=== PATIENT | female | born 1955 | race Caucasian/White ===

== ENCOUNTER → 2019-09-12 09:10 | Outpatient (CLI) | payer MEDICARE, SELFPAY ==
[2019-09-12 09:37] LABS: Add Manual Diff / Slide Review NO; Basophils Absolute Auto 0 /uL (0-100); Basophils Percent Auto 0.7 % (0-2); Eosinophils Absolute Auto 300 /uL (0-450); Eosinophils Percent Auto 4.5 % (2-4); Hematocrit 39.9 % (36-46); Hemoglobin 13.8 g/dL (12.0-16.0); Lymphocytes Absolute Auto 1600 /uL (1100-4500); Lymphocytes Percent Auto 27.9 % (25-40); Mean Corpuscular HGB Conc 34.6 % (30-36); Mean Corpuscular Hemoglobin 31.2 PG (26-34); Mean Corpuscular Volume 89.9 fL (80-100); Monocytes Absolute Auto 400 /uL (0-900); Monocytes Percent Auto 6.2 % (3-14); Neutrophils Absolute Auto 3500 /uL (1500-7000); Neutrophils Percent Auto 60.7 % (50-75); Platelet Count 297 X10^3/uL (150-400); Red Blood Cell Count 4.44 X10^6/uL (4.0-5.2); Red Cell Distribution Width 13.7 % (11.6-14.8); White Blood Cell Count 5.8 X10^3/uL (4.5-11.0)
[2019-09-12 09:49] LABS: Alanine Aminotransferase 21 IU/L (<35); Albumin 4.5 g/dL (3.5-5.0); Albumin Globulin Ratio 1.3 (1.0-2.8); Alkaline Phosphatase 74 U/L (38-126); Aspartate Aminotransferase 22 IU/L (14-36); Bilirubin Total 0.9 mg/dL (0.2-1.3); Blood Urea Nitrogen 10 mg/dL (7-17); Calcium 9.8 mg/dL (8.4-10.2); Carbon Dioxide 31 mmol/L (22-32); Chloride 100 mmol/L (98-107); Cholesterol 283 mg/dL (140-199); Estimated Glomerular Filt Rate > 60.0 mL/min (>60); Globulin 3.4 g/dL (1.7-4.1); Glucose 114 mg/dL (80-110); HDL Cholesterol 39 mg/dL (40-60); HEMOLYSIS < 15 (0-50); LDL Cholesterol Calculated 205 mg/dL (<100); Potassium 4.6 mmol/L (3.4-5.1); Sodium 139 mmol/L (137-145); Total Protein 7.9 g/dL (6.3-8.2); Triglycerides 197 mg/dL (35-150)
[2019-09-12 10:20] LABS: Free T3, Triiodothyronine Free 3.67 pg/mL (2.77-5.27); Free T4, Direct Thyroxine 1.03 ng/dL (0.78-2.19); Vitamin D 25 Hydroxy (D3) 24.8 ng/mL (30.0-100.0)
[2019-09-12 10:33] LABS: Thyroid Stimulating Hormone 2.33 uIU/mL (0.47-4.68)
[2019-09-12 10:56] LABS: Hep C Virus Ab w/Reflex Quant NEGATIVE s/c (NEGATIVE)
== END ==
PROVIDERS: PCP Nurse Practitioner; Visit Provider Nurse Practitioner
DX: Z00.00 Encounter for general adult medical examination without abnormal findings (principal); Z13.6 Encounter for screening for cardiovascular disorders; R63.4 Abnormal weight loss; Q78.2 Osteopetrosis; Z11.59 Encounter for screening for other viral diseases; Z91.89 Other specified personal risk factors, not elsewhere classified; Z13.1 Encounter for screening for diabetes mellitus
CPT/HCPCS: 36415; 80053; 80061; 82306; 84439; 84443; 84481; 85025; 86803

== ENCOUNTER → 2019-09-25 08:00 | Outpatient (CLI) | payer MEDICARE, SELFPAY ==
--- NOTE | 2019-09-25 08:03 | DI.US.S_ITS ---
PROCEDURE: US ABD AORTA ANEURYSM SCREEN INDICATIONS: SCREEN TECHNIQUE: Real time scanning was performed of the aorta and iliac arteries, with image documentation. COMPARISON: None. FINDINGS: Aorta: Proximal aortic diameter measures 2.2 cm. Mid-aorta measures 1.3 cm. Distal aortic diameter is 1.4 cm. Iliac arteries: Right common iliac artery measures 0.8 cm. Left common iliac artery measures 0.9 cm. IMPRESSION: No aneurysm found. Dictated by: Chivo Garcia M.D. on 09/25/2019 at 8:38 Approved by: Chivo Garcia M.D. on 09/25/2019 at 8:39
--- NOTE | 2019-09-25 08:03 | DI.MG.S_ITS ---
BILATERAL DIGITAL SCREENING MAMMOGRAM 3D/2D WITH CAD: 09/25/2019 CLINICAL: Routine screening. Family history of breast cancer. Comparison is made to exams dated: 12/26/2013 mammogram, 12/08/2013 mammogram, and 11/29/2013 mammogram - [facility]. The tissue of both breasts is heterogeneously dense. This may lower the sensitivity of mammography. Current study was also evaluated with a Computer Aided Detection (CAD) system. There is a biopsy clip in the right breast. No significant masses, calcifications, or other findings are seen in either breast. There has been no significant interval change. IMPRESSION: NEGATIVE There is no mammographic evidence of malignancy. A 1 year screening mammogram is recommended. This exam was interpreted at Station ID: [id number]. NOTE: For mammograms, a report in lay terms will be sent to the patient. Approximately 15% of breast malignancies will not be visualized mammographically. In the management of a palpable breast mass, a negative mammogram must not discourage biopsy of a clinically suspicious lesion. Electronically Signed By: Walter ramos/rosey:09/25/2019 09:11:43 letter sent: Normal Exam ACR BI-RADS Category 1: Negative 3341F
== END ==
PROVIDERS: PCP Nurse Practitioner; Visit Provider Nurse Practitioner
DX: Z12.31 Encounter for screening mammogram for malignant neoplasm of breast (principal); Z80.3 Family history of malignant neoplasm of breast; Z13.6 Encounter for screening for cardiovascular disorders
CPT/HCPCS: 76706; 77063; 77067

== ENCOUNTER → 2020-12-11 09:01 | Outpatient (CLI) | payer MEDICARE, SELFPAY ==
--- NOTE | 2020-12-11 09:03 | DI.RAD.S_ITS ---
PROCEDURE: XR ANKLE LT MIN 3V INDICATIONS: rule out fracture TECHNIQUE: 3 views of the ankle were acquired. COMPARISON: None. FINDINGS: Bones: No fractures or dislocations. Ankle mortise is normally aligned. No suspicious bony lesions. Soft tissues: No tibiotalar joint effusion. Achilles tendon appears normal. IMPRESSION: There are small plantar fascia and Achilles tendon insertion spurs at the posterior calcaneus, which may be associated with calcific tendonitis. No trauma found. REFERENCE TEXT DELETE FROM FINAL REPORT Lauge Nieto classification of fracture patterns. Each pattern has a distinctive fibular fx. Supination adduction: * stage 1: transverse fracture of lateral malleolus. * stage 2: vertical fracture at junctio of medial malleolus and tibial plafond. Pronation abduction: * stage 1: transverse fracture of medial malleolus. * stage 2: oblique fracture of fibular immediately above syndesmosis. Supination external rotation (most common): * stage 1: rupture of anterior tib-fib ligament at syndesmosis. * stage 2: spiral lateral malleolar fracture. * stage 3: posterior malleolar fracture or posterior tib-fib ligament rupture. * stage 4: medial malleolar fracture. Pronation external rotation: * stage 1: medial malleolar fx. * stage 2: rupture of anterior tib-fib ligament at syndesmosis. * stage 3: fibular fracture above syndesmosis (can be a Maisonneuve fx). * stage 4: posterior malleolar fracture or posterior tib-fib ligament rupture. Dictated by: Chivo Garcia M.D. on 12/11/2020 at 9:24 Approved by: Chivo Garcia M.D. on 12/11/2020 at 9:25
--- NOTE | 2020-12-11 09:03 | DI.RAD.S_ITS ---
PROCEDURE: XR FOOT LT MIN 3V INDICATIONS: rule out fracture TECHNIQUE: 3 views of the foot were acquired. COMPARISON: None. FINDINGS: Bones: No fractures or dislocations. No suspicious bony lesions. Soft tissues: No tibiotalar joint effusion. Achilles tendon appears normal. IMPRESSION: No trauma found. No sign of stress reaction with cortical hyperostosis. Source of current pain is not seen. If possible please provide area of suspected fracture. Dictated by: Chivo Garcia M.D. on 12/11/2020 at 9:26 Approved by: Chivo Garcia M.D. on 12/11/2020 at 9:30
== END ==
PROVIDERS: PCP Nurse Practitioner; Referring Provider Nurse Practitioner; Visit Provider Nurse Practitioner
DX: M79.672 Pain in left foot (principal); M25.572 Pain in left ankle and joints of left foot; M77.32 Calcaneal spur, left foot
CPT/HCPCS: 73610; 73630

== ENCOUNTER → 2022-02-24 14:03 | Outpatient (CLI) | payer MEDICARE, SELFPAY ==
--- NOTE | 2022-02-24 14:05 | DI.MG.S_ITS ---
BILATERAL DIGITAL SCREENING MAMMOGRAM 3D/2D WITH CAD: 02/24/2022 CLINICAL: Routine screening. Family history of breast cancer. Comparison is made to exams dated: 09/25/2019 mammogram, 12/26/2013 mammogram, 12/08/2013 mammogram, 11/29/2013 mammogram - [facility], and 09/23/2004 mammogram - [facility]. There are scattered fibroglandular elements in both breasts. Current study was also evaluated with a Computer Aided Detection (CAD) system. There is a biopsy clip in the right breast. No significant masses, calcifications, or other findings are seen in either breast. There has been no significant interval change. IMPRESSION: NEGATIVE There is no mammographic evidence of malignancy. A 1 year screening mammogram is recommended. This exam was interpreted at Station ID: [id number]. NOTE: For mammograms, a report in lay terms will be sent to the patient. Approximately 15% of breast malignancies will not be visualized mammographically. In the management of a palpable breast mass, a negative mammogram must not discourage biopsy of a clinically suspicious lesion. Electronically Signed By: Sylvia [email or web address]/rosey:02/24/2022 14:32:58 letter sent: Normal Exam ACR BI-RADS Category 1: Negative 3341F
== END ==
PROVIDERS: PCP Nurse Practitioner; Referring Provider Nurse Practitioner; Visit Provider Nurse Practitioner
DX: Z12.31 Encounter for screening mammogram for malignant neoplasm of breast (principal); Z80.3 Family history of malignant neoplasm of breast
CPT/HCPCS: 77063; 77067

== ENCOUNTER → 2022-11-16 17:01 | Outpatient (CLI) | payer MEDICARE, SELFPAY ==
[2022-11-16 17:50] LABS: Add Manual Diff / Slide Review NO; Basophils Absolute Auto 100 /uL (0-100); Basophils Percent Auto 0.6 % (0-2); Eosinophils Absolute Auto 300 /uL (0-450); Eosinophils Percent Auto 3.8 % (2-4); Hematocrit 37.5 % (36-46); Lymphocytes Absolute Auto 2100 /uL (1100-4500); Lymphocytes Percent Auto 23.6 % (25-40); Mean Corpuscular HGB Conc 34.6 % (30-36); Mean Corpuscular Hemoglobin 30.8 PG (26-34); Monocytes Absolute Auto 600 /uL (0-900); Monocytes Percent Auto 6.8 % (3-14); Neutrophils Absolute Auto 5800 /uL (1500-7000); Neutrophils Percent Auto 65.2 % (50-75); Platelet Count 279 X10^3/uL (150-400); Red Blood Cell Count 4.21 X10^6/uL (4.0-5.2); Red Cell Distribution Width 13.8 % (11.6-14.8); White Blood Cell Count 8.9 X10^3/uL (4.5-11.0)
[2022-11-16 18:24] LABS: Alanine Aminotransferase 20 IU/L (<35); Alkaline Phosphatase 104 U/L (38-126); Amylase 62 U/L (30-110); Aspartate Aminotransferase 22 IU/L (14-36); BUN Creatinine Ratio 13.1 (6-22); Bilirubin Total 1.4 mg/dL (0.2-1.3); Blood Urea Nitrogen 8 mg/dL (7-17); Calcium 9.4 mg/dL (8.4-10.2); Carbon Dioxide 28 mmol/L (22-32); Chloride 97 mmol/L (98-107); Estimated Glomerular Filt Rate > 60 mL/min (>60); Glucose 107 mg/dL (80-110); HEMOLYSIS < 15 (0-50); Lipase 24 U/L (23-300); Potassium 4.4 mmol/L (3.4-5.1); Sodium 136 mmol/L (137-145); Total Protein 8.2 g/dL (6.3-8.2)
[2022-11-16 18:36] LABS: Free T3, Triiodothyronine Free 3.54 pg/mL (2.77-5.27); Free T4, Direct Thyroxine 1.06 ng/dL (0.78-2.19)
[2022-11-20 15:35] LABS: Albumin 4.4 g/dL (3.5-5.0); Albumin Globulin Ratio 1.2 (1.0-2.8); Globulin 3.8 g/dL (1.7-4.1)
== END ==
PROVIDERS: PCP Nurse Practitioner; Referring Provider Nurse Practitioner; Visit Provider Nurse Practitioner
DX: R10.2 Pelvic and perineal pain (principal); R10.9 Unspecified abdominal pain
CPT/HCPCS: 36415; 80053; 82150; 83690; 84439; 84443; 84481; 85025

== ENCOUNTER → 2022-11-17 14:01 | Outpatient (CLI) | payer MEDICARE, SELFPAY ==
[2022-11-18 13:36] LABS: Fecal Immunochemical Test Positive (Negative)
== END ==
PROVIDERS: PCP Nurse Practitioner; Referring Provider Nurse Practitioner; Visit Provider Nurse Practitioner
DX: Z12.11 Encounter for screening for malignant neoplasm of colon (principal)
CPT/HCPCS: 82274

== ENCOUNTER → 2022-11-18 11:51 | Outpatient (CLI) | payer MEDICARE, SELFPAY ==
--- NOTE | 2022-11-18 11:53 | DI.CT.S_ITS ---
PROCEDURE: CT ABDOMEN PELVIS W CON INDICATIONS: abd pn TECHNIQUE: After the administration of oral and IV contrast, axial sections were acquired from the lung bases to the pubic symphysis. Coronal and sagittal reformats were performed. For radiation dose reduction, the following was used: automated exposure control, adjustment of mA and/or kV according to patient size. COMPARISON: None. FINDINGS: Image quality: Excellent. Lung bases: Unremarkable. Heart: No significant findings. ABDOMEN: Liver: The liver is hypoattenuating, consistent with fatty infiltration. Gallbladder: Unremarkable. Biliary ducts: Unremarkable. Pancreas: Unremarkable. Spleen: Unremarkable. Adrenal Glands: Unremarkable. Kidneys and Ureters: Unremarkable. Stomach and Bowel: Bowel wall thickening and inflammatory fat stranding is seen surrounding the rectum and sigmoid colon, consistent with a nonspecific proctocolitis versus diverticulitis. No focal fluid collection or pneumoperitoneum. Scattered additional diverticula are seen in the colon. Normal appendix. No signs of bowel obstruction. Peritoneum: No abnormal intraperitoneal fluid. No free air. Ventral Wall: Small fat containing periumbilical hernia. Abdominal Nodes: No retroperitoneal or mesenteric adenopathy by size criteria. Vessels: Aorta and inferior vena cava are normal in size. Moderate aortic atherosclerotic calcifications. PELVIS: Pelvic Organs: Unremarkable. Bladder: Unremarkable. Pelvic Nodes: No enlarged lymph nodes. Miscellaneous: No inguinal hernias are seen. Bones: Degenerative changes are seen in the spine. IMPRESSION: 1. Bowel wall thickening and surrounding inflammatory fat stranding in the sigmoid colon and rectum may be secondary to uncomplicated diverticulitis versus a nonspecific proctocolitis. No abscess or pneumoperitoneum. No signs of small bowel obstruction. 2. Diffuse hepatic steatosis. Approved by: Darinel Torres M.D. on 11/18/2022 at 19:31
== END ==
PROVIDERS: PCP Nurse Practitioner; Referring Provider Nurse Practitioner; Visit Provider Nurse Practitioner
DX: K76.0 Fatty (change of) liver, not elsewhere classified (principal); K42.9 Umbilical hernia without obstruction or gangrene; R10.9 Unspecified abdominal pain; R50.9 Fever, unspecified; I70.0 Atherosclerosis of aorta
CPT/HCPCS: 74177; Q9967

== ENCOUNTER → 2024-03-23 14:13 | Outpatient (CLI) | payer MEDICARE, SELFPAY ==
--- NOTE | 2024-03-23 14:14 | DI.MG.S_ITS ---
BILATERAL DIGITAL SCREENING MAMMOGRAM 3D/2D WITH CAD: 03/23/2024 CLINICAL: Routine screening. Family history of breast cancer. Comparison is made to exams dated: 09/25/2019 mammogram and 02/24/2022 mammogram - [facility]. There are scattered areas of fibroglandular density in both breasts (category b / 25%-50% glandular tissue). Current study was also evaluated with a Computer Aided Detection (CAD) system. There is a biopsy clip in the right breast. No significant masses, calcifications, or other findings are seen in either breast. There has been no significant interval change. IMPRESSION: BENIGN There is no mammographic evidence of malignancy. A 1 year screening mammogram is recommended. Based on the Tyrer Cuzick model (a risk assessment model) the patient's lifetime risk is 6.2% and her 10 year risk is 3.9%. According to the ACR, ACS, and NCCN guidelines, an annual breast MRI exam along with mammogram is recommended if the patient's lifetime risk is 20% or greater. This exam was interpreted at Station ID: [id number]. NOTE: For mammograms, a report in lay terms will be sent to the patient. Approximately 15% of breast malignancies will not be visualized mammographically. In the management of a palpable breast mass, a negative mammogram must not discourage biopsy of a clinically suspicious lesion. Electronically Signed By: Kathleen Nance M.D., Ph.D. carlotta/[email or web address]:03/24/2024 01:55:16 letter sent: Normal Exam ACR BI-RADS Category 2: Benign Finding(s) 3342F
--- NOTE | 2024-03-23 14:14 | DI.RAD.S_ITS ---
PROCEDURE: XR DEXA AXIAL SKELETON INDICATIONS: osteoporosis COMPARISON: None. FINDINGS: Lumbar Spine: Bone mineral density 1.048 g/cm2, T score 0.0. Left Hip: Bone mineral density 0.968 g/cm2, T score 0.2. Left Femoral Neck: Bone mineral density 0.814 g/cm2, T score -0.3. Right Hip: Bone mineral density 1.049 g/cm2, T score 0.9. Right Femoral Neck: Bone mineral density 0.895 g/cm2, T score 0.4. Fracture Risk Calculation (when applicable): Not reported due to normal bone mineral density. (T score greater or equal to -1.0 to: NORMAL) (T score from -1.1 to -2.4: OSTEOPENIA) (T score less than or equal to -2.5: OSTEOPOROSIS) IMPRESSION: By WHO criteria, the patient has normal bone mineral density. Follow-up guidelines as follows: Osteoporosis: Consider a repeat DEXA and Vertebral Fracture Assessment (VFA) exam in 2 years or sooner if medically necessary, to reassess this patient's status. Osteopenia: Consider a repeat DEXA in 2-3 years to reassess this patient's status, or if there is a new clinical indication. Normal: Consider a repeat DEXA in 5 years or sooner, or if there is a new clinical indication. Approved by: Darinel Torres M.D. on 03/23/2024 at 21:57
== END ==
PROVIDERS: PCP Nurse Practitioner; Referring Provider Nurse Practitioner; Visit Provider Nurse Practitioner
DX: M81.0 Age-related osteoporosis without current pathological fracture (principal); Z12.31 Encounter for screening mammogram for malignant neoplasm of breast; Z78.0 Asymptomatic menopausal state; R92.323 Mammographic fibroglandular density, bilateral breasts
CPT/HCPCS: 77063; 77067; 77080

== ENCOUNTER → 2024-04-18 10:41 | Outpatient (CLI) | payer MEDICARE, SELFPAY ==
[2024-04-18 13:34] LABS: Appearance Urine UA CLEAR; Bilirubin Urine UA NEGATIVE (NEGATIVE); Color Urine UA YELLOW; Glucose Urine UA NEGATIVE (Negative); Ketones Urine UA NEGATIVE (NEGATIVE); Leukocyte Esterase Urine UA NEGATIVE (NEGATIVE); Nitrite Urine UA NEGATIVE (Negative); Occult Blood Urine UA NEGATIVE (Negative); Protein Urine UA NEGATIVE (Negative); Urobilinogen Urine UA 0.2 E.U./dL (0.2)
[2024-04-18 13:44] LABS: Bacteria Urine None Seen; Culture Indicated Urine Cult Not Indicated; RBC Urine None Seen (0-5/HPF); Squamous Epithelial Cell Urine 0-1 /HPF (0-5/HPF); Urine Volume 10mL (spun); WBC Urine None Seen (0-5/HPF)
== END ==
PROVIDERS: PCP Nurse Practitioner; Referring Provider Nurse Practitioner; Visit Provider Nurse Practitioner
DX: R10.9 Unspecified abdominal pain (principal)
CPT/HCPCS: 81001

== ENCOUNTER → 2025-07-11 11:05 | Outpatient (CLI) | payer MEDICARE, SELFPAY | PROVIDERS: PCP Nurse Practitioner Family; Visit Provider Nurse Practitioner Family | DX: R30.0 Dysuria (principal) | CPT/HCPCS: 87086 ==

== ENCOUNTER 2025-08-17 12:56 | Emergency (ER) | payer MEDICARE, OTHER, SELFPAY ==
[2025-08-17 13:01] VITALS: BP 138/65; PULSE 66; RESP 16; TEMP 36.4; O2SAT 99; BMI 33.3
[2025-08-17 13:21] LABS: Add Manual Diff / Slide Review NO; Hematocrit 39.7 % (36-46); Hemoglobin 13.5 g/dL (12.0-16.0); Lymphocytes Absolute Auto 1600 /uL (1100-4500); Mean Corpuscular HGB Conc 34.1 % (30-36); Mean Corpuscular Hemoglobin 30.0 PG (26-34); Mean Corpuscular Volume 88.1 fL (80-100); Platelet Count 298 X10^3/uL (150-400)
[2025-08-17 13:32] LABS: Alanine Aminotransferase 20 IU/L (<35); Albumin 4.7 g/dL (3.5-5.0); Albumin Globulin Ratio 1.3 (1.0-2.8); Alkaline Phosphatase 76 U/L (38-126); Blood Urea Nitrogen 9 mg/dL (7-17); Calcium 9.4 mg/dL (8.4-10.2); Carbon Dioxide 24 mmol/L (22-32); Chloride 101 mmol/L (98-107); Estimated Glomerular Filt Rate > 60 mL/min (>60); Globulin 3.5 g/dL (1.7-4.1); Glucose 105 mg/dL (70-99); HEMOLYSIS < 15 (0-50); Lipase 30 U/L (23-300); Potassium 4.3 mmol/L (3.4-5.1); Sodium 135 mmol/L (137-145); Total Protein 8.2 g/dL (6.3-8.2)
--- NOTE | 2025-08-17 13:38 | ED_ITS ---
HPI - Abdominal Pain <Yara Dumont PA-C - Last Filed: 08/17/25 17:10> General Chief Complaint: Abdominal Pain Stated Complaint: possible diverticulitis per pt/sent from [facility] Time Seen by Provider: 08/17/25 13:19 Source: patient Mode of arrival: Ambulatory History of Present Illness HPI narrative: Ms. Marcelo is a pleasant 70-year-old female with a past medical history of diverticulitis, hyperlipidemia who presents to the emergency department for intermittent, worsening left lower quadrant abdominal pain, sent from the walk- in clinic, x1 month. Patient was in the emergency department June 24, 2025, had a CT scan revealing uncomplicated diverticulitis she also had UTI, she was treated with ceftriaxone, Cipro, Flagyl and discharged home. Patient states over the last month she has continued to have intermittent abdominal pain, she recently took extra fiber and now has worsening pain of the left lower quadrant suprapubic region of her abdomen. This morning she had 4 soft bowel movements, pain is exacerbated and burning when trying to have bowel movement. Patient states she has a history of tortuous colon and therefore can not have colonoscopy as with prior colonoscopy was extremely difficult and painful. She denies any dysuria, hematuria, back pain, flank pain, shortness of breath, flu- like symptoms, fevers, chills. She took Tylenol this morning which did help with the pain temporarily. Related Data Previous Rx's ?Medication ?Instructions ?Recorded amoxicillin 875 mg-potassium 1 tab PO Q12H 10 days #20 tabs 08/17/25 clavulanate 125 mg tablet ketorolac 10 mg tablet 10 mg PO Q8H PRN pain #14 ta bs 08/17/25 Allergies Allergy/AdvReac Type Severity Reaction Status Date / Time No Known Drug Allergies Allergy Verified 08/17/25 13:02 Review of Systems <Yara Dumont PA-C - Last Filed: 08/17/25 17:10> Review of Systems ROS Unobtainable: All systems reviewed & are unremarkable except as noted in HPI and below Patient History <Yara Dumont PA-C - Last Filed: 08/17/25 17:10> Medical History Tortuous colon Proctocolitis Mumps (~1959) Chicken pox (~1960) Tobacco abuse, in remission Genital warts (~1989) Hemorrhoids Surgical History Anesthesia History of tubal ligation (~1980) History of conization of cervix (~1989) Hx of BSO (bilateral salpingo-oophorectomy) Status post right partial knee replacement (~2014) Status post left partial knee replacement (~2015) Family History Father Cancer Mother Stroke Sister Breast cancer Diabetes mellitus Obesity Sister Obesity Diabetes mellitus Grandmother Stroke Social History Smoking Status: Former smoker Smoking Status: Former smoker tobacco type: cigarettes Exam <Yara Dumont PA-C - Last Filed: 08/17/25 17:10> Narrative Exam Narrative: GENERAL: 70 year old patient appears stated age. Well-developed patient, in no acute distress. HEAD: Atraumatic. Normocephalic. EYES: No scleral icterus. No injection or drainage. NECK: Trachea midline. Cervical ROM intact. CARDIOVASCULAR: Regular rate and rhythm. RESPIRATORY: ?Nonlabored respirations. ?Speaking in clear, full sentences. ?Clear to auscultation. Breath sounds equal bilaterally. No wheezes, rales, or rhonchi. ? GASTROINTESTINAL: Abdomen soft, Nondistended, BS present. There is tenderness to palpation of the suprapubic and left lower quadrant region. No right upper quadrant tenderness. No rebound tenderness. EXTREMITIES: No LE edema. BACK: No CVA tenderness. NEURO: AOx3. ?Clear speech. ?Moves all 4 extremities appropriately. Ambulates independently with myself from the waiting room back to the ER room. SKIN: No rash or erythema of visible areas Initial Vital Signs Initial Vital Signs: Vital Signs Temperature 97.6 F 08/17/25 13:01 Pulse Rate 66 08/17/25 13:01 Respiratory Rate 16 08/17/25 13:01 Blood Pressure 138/65 08/17/25 13:01 Pulse Oximetry 99 08/17/25 13:01 Oxygen Delivery Method Room Air 08/17/25 13:01 <Lexus Jc DO - Last Filed: 08/18/25 10:40> Initial Vital Signs Initial Vital Signs: Vital Signs Temperature 97.6 F 08/17/25 13:01 Pulse Rate 66 08/17/25 13:01 Respiratory Rate 16 08/17/25 13:01 Blood Pressure 138/65 08/17/25 13:01 Pulse Oximetry 99 08/17/25 13:01 Oxygen Delivery Method Room Air 08/17/25 13:01 Course <Yara Dumont PA-C - Last Filed: 08/17/25 17:10> Orders Ordered: Discontinued Medications Amoxicillin/Clavulanate Potassium (Amoxicillin/Clav 875/125 Mg) 1 tab PO NOW ONE Stop: 08/17/25 15:33 Last Admin: 08/17/25 15:38 Dose: 1 tab Documented By: BELEN Sodium Chloride (Normal Saline 0.9%) 1,000 mls @ 1,000 mls/hr IV BOLUS ONE Stop: 08/17/25 14:36 Last Infusion: 08/17/25 16:00 Dose: Infused Documented By: Admin: 08/17/25 14:07 Dose: 1,000 mls/hr Documented By: BELEN Ketorolac Tromethamine (Ketorolac 30 Mg/Ml Vial) 15 mg IV NOW ONE Stop: 08/17/25 13:38 Last Admin: 08/17/25 14:07 Dose: 15 mg Documented By: BELEN Ondansetron HCl (Ondansetron 4 Mg/2 Ml Inj) 4 mg IV NOW PRN PRN Reason: Nausea And Vomiting Ondansetron HCl (Ondansetron 4 Mg Odt) 4 mg PO NOW PRN PRN Reason: Nausea And Vomiting Vital Signs Vital signs: Vital Signs - 8 hr 08/17/25 13:01 08/17/25 16:14 Temperature 97.6 F 96.9 F L Pulse Rate 66 64 Respiratory Rate 16 16 Blood Pressure 138/65 146/63 H Pulse Oximetry 99 97 Oxygen Delivery Method Room Air Room Air <Lexus Jc DO - Last Filed: 08/18/25 10:40> Orders Ordered: Discontinued Medications Amoxicillin/Clavulanate Potassium (Amoxicillin/Clav 875/125 Mg) 1 tab PO NOW ONE Stop: 08/17/25 15:33 Last Admin: 08/17/25 15:38 Dose: 1 tab Documented By: BELEN Sodium Chloride (Normal Saline 0.9%) 1,000 mls @ 1,000 mls/hr IV BOLUS ONE Stop: 08/17/25 14:36 Last Infusion: 08/17/25 16:00 Dose: Infused Documented By: Admin: 08/17/25 14:07 Dose: 1,000 mls/hr Documented By: BELEN Ketorolac Tromethamine (Ketorolac 30 Mg/Ml Vial) 15 mg IV NOW ONE Stop: 08/17/25 13:38 Last Admin: 08/17/25 14:07 Dose: 15 mg Documented By: BELEN Ondansetron HCl (Ondansetron 4 Mg/2 Ml Inj) 4 mg IV NOW PRN PRN Reason: Nausea And Vomiting Ondansetron HCl (Ondansetron 4 Mg Odt) 4 mg PO NOW PRN PRN Reason: Nausea And Vomiting Vital Signs Vital signs: Vital Signs - 8 hr 08/17/25 13:01 08/17/25 16:14 Temperature 97.6 F 96.9 F L Pulse Rate 66 64 Respiratory Rate 16 16 Blood Pressure 138/65 146/63 H Pulse Oximetry 99 97 Oxygen Delivery Method Room Air Room Air MDM - Abdominal Pain <Yara Dumont PA-C - Last Filed: 08/17/25 17:10> Medical Records Attestation: I reviewed the patient's medical records. Medical records narrative: Recent ER visit 06/24/2025 for UTI and diverticulitis Lab Data 08/17/25 13:10 08/17/25 13:10 Labs: Lab Results 08/17/25 Range/Units 13:10 WBC 9.3 (4.5-11.0) X10^3/uL RBC 4.50 (4.0-5.2) X10^6/uL Hgb 13.5 (12.0-16.0) g/dL Hct 39.7 (36-46) % MCV 88.1 (80-100) fL MCH 30.0 (26-34) PG MCHC 34.1 (30-36) % RDW 14.8 (11.6-14.8) % Plt Count 298 (150-400) X10^3/uL Neut % (Auto) 73.8 (50-75) % Lymph % (Auto) 17.5 L (25-40) % Cors[place] % (Auto) 5.6 (3-14) % Eos % (Auto) 2.4 (2-4) % Baso % (Auto) 0.7 (0-2) % Neut # (Auto) 6800 (3065-7467) /uL Lymph # (Auto) 1600 (9199-4310) /uL Corson # (Auto) 500 (0-900) /uL Eos # (Auto) 200 (0-450) /uL Baso # (Auto) 100 (0-100) /uL Sodium 135 L (137-145) mmol/L Potassium 4.3 (3.4-5.1) mmol/L Chloride 101 (98-107) mmol/L Carbon Dioxide 24 (22-32) mmol/L BUN 9 (7-17) mg/dL Creatinine 0.50 L (0.52-1.04) mg/dL Estimated GFR > 60 (>60) mL/min BUN/Creatinine Ratio 18.0 (6-22) Glucose 105 H (70-99) mg/dL Calcium 9.4 (8.4-10.2) mg/dL Total Bilirubin 1.0 (0.2-1.3) mg/dL AST 24 (14-36) IU/L ALT 20 (<35) IU/L Alkaline Phosphatase 76 (38-126) U/L Total Protein 8.2 (6.3-8.2) g/dL Albumin 4.7 (3.5-5.0) g/dL Globulin 3.5 (1.7-4.1) g/dL Albumin/Globulin Ratio 1.3 (1.0-2.8) Lipase 30 (23-300) U/L Point of care testing: Urine Dip Bedside Urine Glucose Negative Bedside Urine Bilirubin - Negative Bedside Urine Ketone +/- 5 Urine Specific Ford 1.005 Bedside Urine Occult Blood - Negative Bedside Urine pH 7.5 Bedside Urine Protein - Negative Bedside Urine Urobilinogen - Negative Bedside Urine Nitrite - Negative Bedside Urine Leukocytes - Negative Esterase Imaging Data CT scan - abdomen/pelvis: Radiologist's Impression: PROCEDURE: CT ABDOMEN PELVIS W CON INDICATIONS: LLQ and suprapubic abd pain; hx recent diverticulitis TECHNIQUE: After the administration of intravenous contrast, axial sections acquired from the lung bases to the pubic symphysis. Coronal and sagittal reformats were performed. For radiation dose reduction, the following was used: automated exposure control, adjustment of mA and/or kV according to patient size. COMPARISON: [facility], CT, CT ABDOMEN PELVIS W CON, 06/24/2025 at 9:12 p.m.. FINDINGS: Image quality: Diagnostic. Lower Chest: No significant findings. Mild cardiomegaly relatively unchanged predominantly left atrial, left ventricular enlargement. Mild calcifications of the coronary arteries, aortic valve and descending aorta unchanged. ABDOMEN: Suspected diverticulitis in the distal descending, proximal sigmoid colon junction an area a different from the splenic flexure diverticulitis on the prior exam. Associated pericolonic edema without significant free gas, no loculated fluid collection to suggest abscess. Reactive edema in the mesentery and wall thickening of the adjacent proximal and mid jejunum. Trace free fluid in the pelvis. Nonspecific wall thickening of the sigmoid colon rectum to the anus partial nondistention or reactive changes. No CT evidence of obstruction or significant ileus. Mildly prominent bilateral renal pelves likely variant extrarenal pelvis without CT evidence of renal, ureteral or bladder calculus or significant hydroureter. Degenerative changes lower thoracic, lumbar spine most notably at L4-5 and L5-S1 unchanged no CT evidence of fracture or subluxation. Multilevel anterior bridging osteophytes possible diffuse idiopathic skeletal hyperostosis unchanged. Normal nondilated appendix. Moderate calcifications of the aorta and iliac vessels unchanged. Otherwise the liver, gallbladder, pancreas, spleen, IVC, kidneys, adrenal glands, urinary bladder, uterus, ovaries within normal limits. IMPRESSION: Distal descending, proximal sigmoid diverticulitis as discussed above. Follow-up is needed. Other findings as above. Dictated by: Constantine Mohr M.D. on 08/17/2025 at 14:51 Approved by: Constantine Mohr M.D. on 08/17/2025 at 14:58 [facility] Narrative Medical decision making narrative: 70-year-old female with a past medical history of diverticulitis, hyperlipidemia who presents to the emergency department for intermittent, worsening left lower quadrant abdominal pain, sent from the walk-in clinic, x1 month. Differential diagnosis includes but isn't limited to cystitis, diverticulitis, nephrolithiasis, ureterolithiasis, pancreatitis, bowel obstruction, colitis, etc. On exam the patient is in no acute distress, nontoxic-appearing, all vital signs within normal limits. She was in the ER on 06/24/2025 and treated for uncomplicated diverticulitis at that time. Despite taking antibiotic she is continued to have intermittent pain that is worsened over the last few days. Physical exam reveals tenderness to palpation of the suprapubic left lower quadrant region of the abdomen, with no rebound tenderness. Baseline lab work obtained in triage including CBC, CMP, lipase, UA. Will add on CT abdomen pelvis with contrast, treat with IV fluids and Toradol at this time. POC UA negative for infection. Labs reveal normal WBC count 9.3, hemoglobin 13.5 hematocrit 39.7. Sodium 135, potassium 4.3, BUN 9 creatinine 0.50. Normal LFTs and lipase. CT reveals distal descending, proximal sigmoid diverticulitis -this is different from the splenic flexure diverticulitis that was seen 06/24/2025. No free gas, no loculated fluid collection to accept abscess. On reexamination of patient she states that the Toradol helped with her pain immensely. Repeat abdominal exam improved, no rebound or guarding. We did extensively discuss diverticulitis, I did recommend that she follows up with General surgery as this is her 2nd case of diverticulitis within the last 2 months. Discussed clear liquid diet followed by liquid diet followed by soft diet as tolerated. Discussed Tylenol and Toradol as needed for pain relief. Discussed very strict ER return precautions. Patient verbalized understanding of all information is agreeable with the plan, would like to go home, is tolerating p.o. and stable for discharge at this time. <Lexus Jc, - Last Filed: 08/18/25 10:40> Lab Data Labs: Lab Results 08/17/25 Range/Units 13:10 WBC 9.3 (4.5-11.0) X10^3/uL RBC 4.50 (4.0-5.2) X10^6/uL Hgb 13.5 (12.0-16.0) g/dL Hct 39.7 (36-46) % MCV 88.1 (80-100) fL MCH 30.0 (26-34) PG MCHC 34.1 (30-36) % RDW 14.8 (11.6-14.8) % Plt Count 298 (150-400) X10^3/uL Neut % (Auto) 73.8 (50-75) % Lymph % (Auto) 17.5 L (25-40) % Corson % (Auto) 5.6 (3-14) % Eos % (Auto) 2.4 (2-4) % Baso % (Auto) 0.7 (0-2) % Neut # (Auto) 6800 (0032-4418) /uL Lymph # (Auto) 1600 (2457-7139) /uL Corson # (Auto) 500 (0-900) /uL Eos # (Auto) 200 (0-450) /uL Baso # (Auto) 100 (0-100) /uL Sodium 135 L (137-145) mmol/L Potassium 4.3 (3.4-5.1) mmol/L Chloride 101 (98-107) mmol/L Carbon Dioxide 24 (22-32) mmol/L BUN 9 (7-17) mg/dL Creatinine 0.50 L (0.52-1.04) mg/dL Estimated GFR > 60 (>60) mL/min BUN/Creatinine Ratio 18.0 (6-22) Glucose 105 H (70-99) mg/dL Calcium 9.4 (8.4-10.2) mg/dL Total Bilirubin 1.0 (0.2-1.3) mg/dL AST 24 (14-36) IU/L ALT 20 (<35) IU/L Alkaline Phosphatase 76 (38-126) U/L Total Protein 8.2 (6.3-8.2) g/dL Albumin 4.7 (3.5-5.0) g/dL Globulin 3.5 (1.7-4.1) g/dL Albumin/Globulin Ratio 1.3 (1.0-2.8) Lipase 30 (23-300) U/L Point of care testing: Urine Dip Bedside Urine Glucose Negative Bedside Urine Bilirubin - Negative Bedside Urine Ketone +/- 5 Urine Specific Ford 1.005 Bedside Urine Occult Blood - Negative Bedside Urine pH 7.5 Bedside Urine Protein - Negative Bedside Urine Urobilinogen - Negative Bedside Urine Nitrite - Negative Bedside Urine Leukocytes - Negative Esterase Discharge Plan Departure Patient Disposition: Home Clinical Impression: Diverticulitis of descending colon Instructions: Clear Liquid Diet, DI for Diverticulitis Activity Restrictions/Additional Instructions: Dear Ms. Marcelo, Thank you for coming to the emergency department. Today you were evaluated for left lower abdominal pain. Your CT scan did reveal diverticulitis of the lower colon. Please complete the full 10 day course of antibiotics. I would like you to rest her bowels at this time by only consuming a clear liquid diet for the next 1-2 days followed by a normal liquid diet followed by a soft diet as tolerated. Please use Tylenol in the prescribed Toradol if needed for pain. Do not use Motrin/Advil/ibuprofen with this prescription pain medication. It is very important that you follow up with your primary care doctor and/or General surgery for further management as this is her 2nd episode of diverticulitis within the last 2 months. Return to the emergency department immediately if you develop fevers, severe pain, inability to keep down her antibiotics or any other new or worsening symptoms. Please follow up with your primary care doctor within the next 2-3 days for ER follow-up. (If you do not have a PCP you can call [phone]. ?to schedule an appointment with an [facility] Primary Care Provider) IF YOU DEVELOP ANY NEW OR WORSENING SYMPTOMS, RETURN TO THE ER! Please read the attached instructions, they highlight more specific treatments and interventions for you at home. Thank you for letting me participate in your care, Yara Dumont PA-C Prescriptions: New amoxicillin-pot clavulanate 875-125 mg tablet 1 tab PO Q12H 10 Days Qty: 20 0RF ketorolac 10 mg tablet 10 mg PO Q8H PRN (Reason: pain) Qty: 14 0RF Rx Instructions: maximum total duration of 5 days from all oral, intranasal, or parenteral formulations Referrals: [facility] [Provider Group] Referral Note: diverticulitis Sindhu Recio, THREAD PULLING MACHINE ATTENDANT-BC [Primary Care Provider, Family Practice] Stand Alone Forms: Patient Portal/API ED Sign-out <Lexus Jc DO - Last Filed: 08/18/25 10:40> Cosign ED Attending Cosmalindaature Attestation: I was available for consultation.
[2025-08-17] MEDS: KETOROLAC 30 MG/ML VIAL 15 MG IV (14:07)
[2025-08-17] MEDS: SODIUM CHLORIDE 0.9% 1,000 ML 1000 ML IV (14:07)
[2025-08-17] MEDS: AMOXICILLIN/CLAV 875/125 MG 1 TAB PO (15:38)
[2025-08-17 16:14] VITALS: BP 146/63; PULSE 64; RESP 16; TEMP 36.1; O2SAT 97
== END 2025-08-17 16:17 | disposition home or self-care (01) ==
PROVIDERS: Emergency Medicine; Emergency Provider Physician Assistant; PCP Nurse Practitioner Family
DX: K57.32 Diverticulitis of large intestine without perforation or abscess without bleeding (principal)
CPT/HCPCS: 36415; 74177; 80053; 81003; 83690; 85025; 96361; 96374; 99284; J1885; J7030; Q9967

== ENCOUNTER 2025-10-26 10:52 | Emergency (ER) | payer MEDICARE, OTHER, SELFPAY ==
--- OUTSIDE RECORDS SUMMARY | 2025-10-26 10:54 | XMS_ITS | Encounter Summary ---
Author Organization [facility] Address [address] [place] [address] Care Team Providers Care Director Nursing Service Name Role Phone Sindhu Recio CARA Primary Care Provider [phone]- [phone] Encounter Details Date Type Department Care Team (Late st Contact Info) Description 10/18/2025 Orders Only [facility] Gastroenterology [address] [phone] Radha Roth MD [address] [phone] Recurrent diverticulitis (Primary Dx); Colon cancer screening; Family history of colon cancer Social History Tobacco Use Types Packs/Day Years Used Date Smoking Tobacco: Former Cigarettes 1 30 Smokeless Tobacco: Never Alcohol Use Standard Drinks/Week Comments Yes 2 (1 standard drink = 0.6 oz pur e alcohol) 1 beer every 2 weeks or longer AUDIT-C Answer Date Recorded Q1: How often do you have a drink containing alc ohol? 2-4 times a month 10/15/2025 Q2: How many drinks containi ng alcohol do you have on a typical day when you are drinking? 1 or 2 10/15/2025 Frequency of Binge Drinking Not on file 10/01 Comments Unknown Sex and Gender Information Value Date Recorded Sex Assigned at Not on file Legal Sex Female 7:19 PM PDT Gender Identity Not on file Sexual Orientation Not on file documented as of this encounter Plan of Treatment Upcoming Encounters Date Type Department Care Team (Latest Contact Info) Description 12/24/2025 8:00 AM PST Hospital Encounter [facility] Endoscopy [address] [phone] Oleg Leos MD [address] [phone] 12/24/2025 8:00 AM PST - 12/24/2025 8:30 AM [facility] Endoscopy [address] [phone] Oleg Leos MD [address] [phone] COLONOSCOPY [05899 (CPT )] Scheduled Procedures Name Priority Associated Diagnoses Date/Ti me DIAGNOSTIC FLEXIBLE COLONOSCOPY PROXIMAL TO SPLENIC FLEXURE WITH COLLECTION OF SPECIMEN BY WASHING AND COLON DECOMPRESSION Recurrent diverticulitis Colon cancer screening Family history of colon cancer 12/24/2025 8:00 AM PST documented as of this encounter Visit Diagnoses Diagnosis Recurrent diverticulitis- Primary Colon cancer screening Special screening for malignant neoplasms, colon Family history of colon cancer Family history of malignant neoplasm of gastrointestinal tract Recurrent diverticulitis Colon cancer screening Special screening for malignant neoplasms, colon Family history of colon cancer Family history of malignant neoplasm of gastrointestinal tract Recurrent diverticulitis Colon cancer screening Special screening for malignant neoplasms, colon Family history of colon cancer Family history of malignant neoplasm of gastrointestinal tract documented in this encounter Care Teams Director Nursing Service Relationship Specialty Start Date End Date Sindhu Recio FNP [address], [address] [place], [place] [id number] PCP - General Nurse Practitioner Family 10/15/25 documented as of this encounter
[2025-10-26 10:58] VITALS: BP 158/71; PULSE 64; RESP 16; O2SAT 98
[2025-10-26 11:01] VITALS: BP 158/71; TEMP 36.8; O2SAT 98; BMI 33.3
--- NOTE | 2025-10-26 11:04 | ED_ITS ---
HPI - Abdominal Pain General Chief Complaint: Abdominal Pain Stated Complaint: Pain Left side & stomach. Time Seen by Provider: 10/26/25 10:55 Source: patient Mode of arrival: Ambulatory History of Present Illness HPI narrative: 70-year-old female medical history of diverticulitis dyslipidemia presents with intermittent worsening left lower quadrant abdominal pain seen recently by PCP placed on Cipro and Flagyl 5 days but started developing worsening bloating pain but no nausea, vomiting, diarrhea, rectal bleeding, back pain, fever, chills, body aches, chest pain, shortness of breath, or urinary complaints. Other than what is stated 14 point review of system is negative Related Data Previous Rx's ?Medication ?Instructions ?Recorded amoxicillin 875 mg-potassium 1 tab PO Q12H #14 tabs clavulanate 125 mg tablet hydrocodone 5 mg-acetaminophen 325 1 tab PO Q4-6H PRN pain #20 tabs 10/26/25 mg tablet Allergies Allergy/AdvReac Type Severity Reaction Status Date / Time metronidazole Allergy Mild Diarrhea Verified 10/24/25 08:57 Review of Systems Review of Systems ROS Unobtainable: All systems reviewed & are unremarkable except as noted in HPI and below Patient History Medical History Tortuous colon Proctocolitis Mumps (~1959) Chicken pox (~1960) Tobacco abuse, in remission Genital warts (~1989) Hemorrhoids Surgical History Anesthesia History of tubal ligation (~1980) History of conization of cervix (~1989) Hx of BSO (bilateral salpingo-oophorectomy) 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 Well-developed patient, in mild distress. HEAD: Atraumatic. Normocephalic. EYES: Pupils equal round and reactive. Extraocular motions intact. No scleral icterus. No injection or drainage. ENT: Nose without bleeding, purulent drainage. Throat without erythema, tonsillar hypertrophy or exudate. Airway patent. NECK: Trachea midline. Non tender CARDIOVASCULAR: Regular rate and rhythm without murmurs, gallops, or rubs. RESPIRATORY: Clear to auscultation. Breath sounds equal bilaterally. No wheezes, rales, or rhonchi. GASTROINTESTINAL: Abdomen soft, LLQ TTP no r/r/g nondistended. EXTREMITIES: No edema or joint tenderness. BACK: Nontender without deformity or crepitance. No flank tenderness. NEURO: AOx3. SKIN: No rash or erythema of visible areas Initial Vital Signs Initial Vital Signs: Vital Signs Pulse Rate 64 10/26/25 10:58 Respiratory Rate 16 10/26/25 10:58 Blood Pressure 158/71 H 10/26/25 10:58 Pulse Oximetry 98 10/26/25 10:58 Oxygen Delivery Method Room Air 10/26/25 10:58 Course Orders Ordered: ED Orders 10/26/25 11:04 EKG-12 Lead Stat 10/26/25 11:05 CT abdomen pelvis w con Stat 10/26/25 11:17 Complete Blood Count AUTO DIFF Stat Comprehensive Metabolic Panel Stat Lipase Stat Ondansetron HCl (Ondansetron 4 Mg/2 Ml Inj) 4 mg IV NOW PRN PRN Reason: Nausea And Vomiting Ondansetron HCl (Ondansetron 4 Mg Odt) 4 mg PO NOW PRN PRN Reason: Nausea And Vomiting Discontinued Medications Lactated Ringer's (Lactated Ringers) 1,000 mls @ 1,000 mls/hr IV BOLUS ONE Stop: 10/26/25 12:03 Last Infusion: 10/26/25 12:24 Dose: Infused Documented By: Admin: 10/26/25 11:26 Dose: 1,000 mls/hr Documented By: RICH Ketorolac Tromethamine (Ketorolac 30 Mg/Ml Vial) 15 mg IV NOW ONE Stop: 10/26/25 11:06 Last Admin: 10/26/25 11:25 Dose: 15 mg Documented By: RICH Vital Signs Vital signs: Vital Signs - 8 hr 10/26/25 10:58 10/26/25 11:01 Temperature 98.3 F Pulse Rate 64 Respiratory Rate 16 Blood Pressure 158/71 H 158/71 H Pulse Oximetry 98 98 Oxygen Delivery Method Room Air Room Air MDM - Abdominal Pain Lab Data 10/26/25 11:17 10/26/25 11:17 Labs: Lab Results 10/26/25 Range/Units 11:17 WBC 6.2 (4.5-11.0) X10^3/uL RBC 4.48 (4.0-5.2) X10^6/uL Hgb 13.8 (12.0-16.0) g/dL Hct 39.2 (36-46) % MCV 87.3 (80-100) fL MCH 30.7 (26-34) PG MCHC 35.1 (30-36) % RDW 14.5 (11.6-14.8) % Plt Count 259 (150-400) X10^3/uL Neut % (Auto) 67.7 (50-75) % Lymph % (Auto) 22.7 L (25-40) % [place] % (Auto) 5.8 (3-14) % Eos % (Auto) 3.1 (2-4) % Baso % (Auto) 0.7 (0-2) % Neut # (Auto) 4200 (4819-8625) /uL Lymph # (Auto) 1400 (9550-5004) /uL [place] # (Auto) 400 (0-900) /uL Eos # (Auto) 200 (0-450) /uL Baso # (Auto) 0 (0-100) /uL Sodium 136 L (137-145) mmol/L Potassium 3.9 (3.4-5.1) mmol/L Chloride 100 (98-107) mmol/L Carbon Dioxide 28 (22-32) mmol/L BUN 5 L (7-17) mg/dL Creatinine 0.51 L (0.52-1.04) mg/dL Estimated GFR > 60 (>60) mL/min BUN/Creatinine Ratio 9.8 (6-22) Glucose 96 (70-99) mg/dL Calcium 9.0 (8.4-10.2) mg/dL Total Bilirubin 1.2 (0.2-1.3) mg/dL AST 30 (14-36) IU/L ALT 24 (<35) IU/L Alkaline Phosphatase 60 (38-126) U/L Total Protein 7.7 (6.3-8.2) g/dL Albumin 4.4 (3.5-5.0) g/dL Globulin 3.3 (1.7-4.1) g/dL Albumin/Globulin Ratio 1.3 (1.0-2.8) Lipase 34 (23-300) U/L Point of care testing: Urine Dip Bedside Urine Glucose Negative Bedside Urine Bilirubin - Negative Bedside Urine Ketone +/- 5 Urine Specific [place] 1.000 Bedside Urine Occult Blood - Negative Bedside Urine pH 7.0 Bedside Urine Protein - Negative Bedside Urine Urobilinogen - Negative Bedside Urine Nitrite - Negative Bedside Urine Leukocytes - Negative Esterase Imaging Data CT scan - abdomen/pelvis: Radiologist's Impression: [address] [address] [address] Scan Report Signed Patient: Kathleen Marcelo MR#: [id number] : 1955 Acct:[id number] Age/Sex: 70 / F Date of Service: 10/26/25 Loc: ED Accession Number: [id number] Procedure: CT abdomen pelvis w con Ordering Provider: Cliff Dwyer D.O. PROCEDURE: CT ABDOMEN PELVIS W CON INDICATIONS: abd pain TECHNIQUE: After the administration of intravenous contrast, axial sections acquired from the lung bases to the pubic symphysis. Coronal and sagittal reformats were performed. For radiation dose reduction, the following was used: automated exposure control, adjustment of mA and/or kV according to patient size. COMPARISON: [facility], CT, CT ABDOMEN PELVIS W CON, 08/17/2025, 13:54. FINDINGS: Image quality: Diagnostic. Lower Chest: No significant findings. ABDOMEN: Liver: No solid mass. Gallbladder: No radiopaque gallstones or wall thickening. Biliary ducts: No biliary dilation. Pancreas: No ductal dilation. Spleen: Size is within normal limits. Adrenal Glands: No adrenal nodules. Kidneys and Ureters: No hydronephrosis. No solid mass. No complex renal cystic lesion which requires follow up. Punctate 1 mm nonobstructing right renal stone. Stomach and Bowel: Normal colonic caliber, without significant wall thickening. Diverticulosis. Significant improvement from previous. Question subtle changes of acute diverticulitis of the descending colon. Peritoneum: No abnormal intraperitoneal fluid. No free air. Ventral Wall: No significant ventral hernia. Abdominal Nodes: No retroperitoneal or mesenteric adenopathy by size criteria. Vessels: Aorta and inferior vena cava are normal in size. PELVIS: Pelvic Organs: Unremarkable. Bladder: No bladder wall thickening, accounting for underdistention. Pelvic Nodes: No enlarged lymph nodes. Miscellaneous: No inguinal hernias are seen. Bones: No aggressive osseous abnormality. IMPRESSION: 1. Significant interval improvement since the previous study, in which there was prominent diverticulitis. 2. Question very subtle changes of acute diverticulitis of the descending colon. Dictated by: Ruiz Isabel M.D. on 10/26/2025 at 12:31 Approved by: Ruiz Isabel M.D. on 10/26/2025 at 12:36 ECG Data Interpretation: Sinus [place] HR 54 [place] 194 QRS [address]-t wave change Change from 06/24/25 MDM Narrative Medical decision making narrative: All lab work, vital signs, telephone diaphragm assembler note, medication list, previous ER visits and all imaging studies reviewed. CT head shows significant interval improvement since the previous study in which there was prominent diverticulitis. Questionable very subtle changes of acute diverticulitis of the descending colon. We will send patient home on [place] and Augmentin. Clear liquid diet advance as tolerated. Differential diagnosis abscess perforation diverticulitis/ D/c home on norco and augmentin rx Discharge Plan Departure Patient Disposition: Home Clinical Impression: Acute diverticulitis Instructions: DI for Diverticulitis Activity Restrictions/Additional Instructions: Return with new or worsening symptoms. Take medicines as directed. Clear liquid diet advance as tolerated. Prescriptions: New amoxicillin-pot clavulanate 875-125 mg tablet 1 tab PO Q12H Qty: 14 0RF hydrocodone-acetaminophen 5-325 mg tablet 1 tab PO Q4-6H PRN (Reason: pain) Qty: 20 0RF Referrals: Sindhu Recio FNP-BC [Primary Care Provider, Family Practice] Stand Alone Forms: Patient Portal/API
[2025-10-26] MEDS: KETOROLAC 30 MG/ML VIAL 15 MG IV (11:25)
[2025-10-26] MEDS: LACTATED RINGERS 1,000 ML 1000 ML IV (11:26)
[2025-10-26 11:28] LABS: Add Manual Diff / Slide Review NO; Hematocrit 39.2 % (36-46); Hemoglobin 13.8 g/dL (12.0-16.0); Lymphocytes Absolute Auto 1400 /uL (1100-4500); Mean Corpuscular HGB Conc 35.1 % (30-36); Mean Corpuscular Hemoglobin 30.7 PG (26-34); Mean Corpuscular Volume 87.3 fL (80-100); Platelet Count 259 X10^3/uL (150-400)
--- NOTE | 2025-10-26 11:29 | EKG_ITS ---
[address] [address] Test Date: 2025-10-26 Pat Name: Kathleen Marcelo Department: [facility] Room: Gender: Female Occupational Medicine Officer: TIM : 1955 Requested By: Order Number: [id number] Reading MD: Cliff Walton MD Measurements Intervals [place] Rate: 54 P: 59 MN: 194 QRS: 32 QRSD: 88 T: 63 QT: 442 QTc: 419 Interpretive Statements Sinus bradycardia Electronically Signed On 10-26-2025 15:58:32 PST by Cliff Walton MD
[2025-10-26 11:42] LABS: Alanine Aminotransferase 24 IU/L (<35); Albumin 4.4 g/dL (3.5-5.0); Albumin Globulin Ratio 1.3 (1.0-2.8); Alkaline Phosphatase 60 U/L (38-126); Blood Urea Nitrogen 5 mg/dL (7-17); Calcium 9.0 mg/dL (8.4-10.2); Carbon Dioxide 28 mmol/L (22-32); Chloride 100 mmol/L (98-107); Estimated Glomerular Filt Rate > 60 mL/min (>60); Globulin 3.3 g/dL (1.7-4.1); Glucose 96 mg/dL (70-99); HEMOLYSIS < 15 (0-50); Lipase 34 U/L (23-300); Potassium 3.9 mmol/L (3.4-5.1); Sodium 136 mmol/L (137-145); Total Protein 7.7 g/dL (6.3-8.2)
[2025-10-26 14:54] VITALS: BP 170/66; PULSE 61; RESP 16; O2SAT 97
== END 2025-10-26 14:55 | disposition home or self-care (01) ==
PROVIDERS: Emergency Provider Family Medicine; PCP Nurse Practitioner Family
DX: K57.32 Diverticulitis of large intestine without perforation or abscess without bleeding (principal)
CPT/HCPCS: 36415; 74177; 80053; 81003; 83690; 85025; 93005; 96361; 96374; 99284; J1885; J7120; Q9967